=== PATIENT | female | born 1965 | race Caucasian/White ===

== ENCOUNTER 2016-08-02 13:46 | Emergency (ER) | payer OTHER ==
[2016-08-02] MEDS ORDERED: HYDROmorphone HCL 1 MG/ML SYR ONE (15:28)
--- NOTE | 2016-08-02 17:05 | ER PHYSICIAN DOCUMENTATION ---
Physician Documentation [facility] Name:Isabella Cantor Age:51 yrs Sex:Female :1965 Arrival Date:08/02/2016 Time:13:46 Bed6 Private MD: Sukhdeep Sloan Disposition: 08/02/16 15:23 Discharged to Home/Self Care. Impression: Fracture. - Condition is Good. - Discharge Instructions: FRACTURE, Upper Extremity. - Prescriptions for oxycodone- acetaminophen 5-325 mg Oral tablet - take 1 tablet by ORAL route every 4-6 hours; 30 tablet. - Medical Reconciliation form form. - Follow up: Private Physician; When: 4- 6 days; Reason: Continuance of care. - Problem is new. - Symptoms are unchanged. HPI: 08/02 15:17 This 51 yrs old Female presents to ER via Private Vehicle with complaints of sc Fall Injury, Arm Injury. 15:17 Details of fall: The patient fell from an upright position, while walking. Onset: The sc symptom(s)/episode began/occurred 2 hour(s) ago. Associated injuries: The patient sustained left elbow. Associated signs and symptoms: The patient has no apparent associated signs or symptoms, Loss of consciousness: the patient experienced no loss of consciousness. Severity of symptoms: At their worst the symptoms were moderate. Historical: - Allergies: SULFA (SULFONAMIDES); - Home Meds: 1. losartan oral 2. Zocor Oral - PMHx: Hypertension; hypercholesterol; - PSHx: csection x2; breast augmentation; Tonsillectomy; tubal ligation; - Tetanus: < 10 years < 10 years. - Ebola Screening: : Patient negative for fever greater than or equal to 101.5 degrees Fahrenheit, and additional compatible Ebola Virus Disease symptoms. Patient denies exposure to infectious person. Patient denies travel to an Ebola-affected area in the 21 days before illness onset. No symptoms or risks identified at this time. . - Immunization history: Pneumococcal vaccine is not up to date, Patient has never been vaccinated Flu Vaccine < 1 year. - Social history: Smoking status: Patient states was never smoker of tobacco. Patient/guardian denies using alcohol, marijuana. ROS: 15:18 Constitutional: Negative for fever, chills, and weight loss. sc Eyes: Negative for injury, pain, redness, and discharge. ENT: Negative for injury, pain, and discharge. Neck: Negative for injury, pain, and swelling. Cardiovascular: Negative for chest pain, palpitations, and edema. Respiratory: Negative for shortness of breath, cough, wheezing, and pleuritic chest pain. Abdomen/GI: Negative for abdominal pain, nausea, vomiting, diarrhea, and constipation. Back: Negative for injury and pain. Skin: Negative for injury, rash, and discoloration. 15:18 Neuro: Negative for headache, weakness, numbness, tingling, and seizure. sc 15:18 MS/extremity: Positive for injury or acute deformity, pain. Exam: Constitutional: This is a well developed, well nourished patient who is awake, alert, and in no acute distress. Head/Face: Normocephalic, atraumatic. Eyes: Pupils equal round and reactive to light, extra-ocular motions intact. Lids and lashes normal. Conjunctiva and sclera are non-icteric and not injected. Cornea within normal limits. Periorbital areas with no swelling, redness, or edema. Neck: Trachea midline, no thyromegaly or masses palpated, and no cervical lymphadenopathy. Supple, full range of motion without nuchal rigidity, or vertebral point tenderness. No meningismus. Back: No spinal tenderness. No costovertebral tenderness. Full range of motion. Skin: Warm, dry with normal turgor. Normal color with no rashes, no lesions, and no evidence of cellulitis. 15:18 Neuro: Awake and alert, GCS 15, oriented to person, place, time, and situation. ar Cranial nerves II-XII grossly intact. Motor strength 5/5 in all extremities. Sensory grossly intact. Cerebellar exam normal. Normal gait. 15:18 Musculoskeletal/extremity: Extremities: grossly normal except: decreased ROM, pain, swelling, tenderness, Circulation is intact in all extremities. Sensation intact. 15:18 Neuro: Cranial nerves: Motor: is normal. Vital Signs: 14:03 BP 151 / 88; Pulse 81; Resp 16; Temp 97.7(O); Pulse Ox 94% on R/A; Weight 90.72 kg; sj Height 5 ft. 6 in. (167.64 cm); Pain 5/10; 15:24 BP 135 / 71 (auto/); Pulse 83; Pulse Ox 94% on R/A; Pain 8/10; sj 15:48 BP 96 / 38 (auto/); Pulse 92; Pulse Ox 86% on R/A; sj 16:21 BP 121 / 61 (auto/); Pulse 86; Resp 16; Pulse Ox 96% ; Pain 0/10; sj 14:03 Body Mass Index 32.28 (90.72 kg, 167.64 cm) Trauma Score (Adult): 14:03 Eye Response: spontaneous(1); Verbal Response: oriented(1); Motor Response: obeys commands(2); Systolic BP: > 89 mm Hg(4); Respiratory Rate: 10 to 29 per min(4); Yun Score: 15; Trauma Score: 12 Procedures: 15:19 Splinting: Splint applied to left elbow using Orthoglass splint, applied by myself. sc Examined by me, post splint application: neurovascular intact, Patient tolerated well. MDM: 13:54 Patient medically screened. ar 15:19 Physician consultation: Osorio Underwood MD was called at 15:19, was contacted at 15:20, ar regarding patient's condition, Dr. Underwood says patient needs surgical repair but he does not want to or is not able to provide this service. Arrangements made for ortho follow up on return home.. 16:55 Data reviewed: and as a result, I will discharge patient. Counseling: I had a detailed ar discussion with the patient and/or guardian regarding: the historical points, exam findings, and any diagnostic results supporting the discharge/admit diagnosis, radiology results, the need for outpatient follow up, for a referral to a specialist. 08/02 14:26 Order name: ELBOW;[place] [id number]; Complete Time: 15:24 EDUT 08/02 14:26 Order name: [place] [id number]; Complete Time: 15:24 EDUT 08/02 21:06 Order name: ELBOW;COMPLETE [place] [id number] EDUT 08/02 15:25 Order name: ORTHO: Ice Pack; Complete Time: 16:06 ar 08/02 15:25 Order name: ORTHO: Shoulder Immobilizer; Complete Time: 16:06 ar 08/02 15:25 Order name: ORTHO: Splint; Complete Time: 16:06 ar 08/02 16:06 Order name: Oxygen; Complete Time: 16:06 Dispensed Medications: 15:45 Drug: Dilaudid 2 mg; Route: IM; Site: left gluteus; sj 16:47 Follow up: Response: Pain is decreased sj Signatures: Sukhdeep Salter MD MD sc Janzen, Sarah sj
--- NOTE | 2016-08-02 17:05 | ER NURSING DOCUMENTATION ---
Nurse's Notes [facility] Name:Isabella Cantor Age:51 yrs Sex:Female :1965 Arrival Date:08/02/2016 Time:13:46 Bed6 Private MD: Diagnosis:Fracture Presentation: 08/02 13:56 Presenting complaint: Patient states: Fell today while hiking, landing on left elbow sj and heard something "snap.". Care prior to arrival: sling. Mechanism of Injury: Fall. Trauma event details: Injury occurred in the [facility] Injury occurred in a recreational area. Injury occurred August 02, 2016 Injury occurred at 12:00. 13:56 Acuity: MANPREET 3 sj 13:56 Method Of Arrival: Private Vehicle sj 17:03 Transition of care: Other hiking in [facility]. sj Triage Assessment: 17:00 General: Appears distressed, Behavior is cooperative, pleasant. Pain: Complains of pain sj in distal left humerus. Neuro: Denies paresthesias in left hand numbness. Cardiovascular: Capillary refill < 3 seconds. Cardiovascular: Capillary refill in left fingers. Respiratory: Respiratory effort is even, unlabored. Musculoskeletal: Swelling present in left elbow. Historical: - Allergies: SULFA (SULFONAMIDES); - Home Meds: 1. losartan oral 2. Zocor Oral - PMHx: Hypertension; hypercholesterol; - PSHx: csection x2; breast augmentation; Tonsillectomy; tubal ligation; - Tetanus: < 10 years < 10 years. - Ebola Screening: : Patient negative for fever greater than or equal to 101.5 degrees Fahrenheit, and additional compatible Ebola Virus Disease symptoms. Patient denies exposure to infectious person. Patient denies travel to an Ebola-affected area in the 21 days before illness onset. No symptoms or risks identified at this time. . - Immunization history: Pneumococcal vaccine is not up to date, Patient has never been vaccinated Flu Vaccine < 1 year. - Social history: Smoking status: Patient states was never smoker of tobacco. Patient/guardian denies using alcohol, marijuana. Screenin:04 Abuse screen: Denies threats or abuse. Denies injuries from another. Nutritional sj screening: No deficits noted. Tuberculosis screening: No symptoms or risk factors identified. Primary Survey: 17:02 Circulation: Pulses: palpable left radial artery. Skin color: pink. sj Assessment: 13:58 General: Appears uncomfortable, Behavior is cooperative, pleasant. Pain: Complains of sj pain in distal left humerus Pain currently is 5 out of 10 on a pain scale. Neuro: Level of Consciousness is awake, alert, Oriented to person, place, time, event, Denies paresthesias. Cardiovascular: Capillary refill < 3 seconds is brisk Pulses are 2+ in left radial artery. Respiratory: Respiratory effort is even, unlabored. Musculoskeletal: Circulation, motion, and sensation intact Capillary refill < 3 seconds Range of motion limited in left elbow Swelling absent. 15:51 Reassessment: Assisted Dr. Salter with posterior splint. Patient became diaphoretic and sj nauseated after procedure. BP now 96/38 with pulse ox 86%. HOB lowered and 2L O2/nc placed.. Vital Signs: 14:03 BP 151 / 88; Pulse 81; Resp 16; Temp 97.7(O); Pulse Ox 94% on R/A; Weight 90.72 kg; sj Height 5 ft. 6 in. (167.64 cm); Pain 5/10; 15:24 BP 135 / 71 (auto/); Pulse 83; Pulse Ox 94% on R/A; Pain 8/10; sj 15:48 BP 96 / 38 (auto/); Pulse 92; Pulse Ox 86% on R/A; sj 16:21 BP 121 / 61 (auto/); Pulse 86; Resp 16; Pulse Ox 96% ; Pain 0/10; sj 14:03 Body Mass Index 32.28 (90.72 kg, 167.64 cm) sj Trauma Score (Adult): 14:03 Eye Response: spontaneous(1); Verbal Response: oriented(1); Motor Response: obeys commands(2); Systolic BP: > 89 mm Hg(4); Respiratory Rate: 10 to 29 per min(4); [place] Score: 15; Trauma Score: 12 ED Course: 13:47 Patient arrived in ED. cj 13:54 Sukhdeep Salter MD is Attending Physician. sc 13:56 Shy Wagner is Primary Nurse. sj 13:58 Triage completed. sj 14:04 Valuables Given to family. Patient has correct armband on for positive identification. sj Bed in low position. Call light in reach. Side rails up X 1. 14:10 Port Xray Completed. ms 14:26 ELBOW;[place] [id number] In Process Unspecified. EDMS 14:26 [place] [id number] In Process Unspecified. EDMS Administered Medications: 15:45 Drug: Dilaudid 2 mg; Route: IM; Site: left gluteus; sj 16:47 Follow up: Response: Pain is decreased sj Outcome: 15:23 Discharge ordered by . nm 16:57 Discharged to home ambulatory, with family. 16:57 Condition: improved 16:57 Discharge instructions given to patient, Instructed on discharge instructions, follow up and referral plans. medication usage, Ortho Care Demonstrated understanding of instructions, medications, Prescriptions given X 1. 17:04 Patient left the ED. 08/03 09:17 Discharge F/U Call: Spoke with: patient. Are you having any pain? yes. Pain level is lp 4 / 10 How are you managing your pain? Patient is taking medication: percocet and ibuprofen Have you filled your prescriptions? yes. Signatures: Dispatcher [employer] EDMS Daniella Tsang RN RN cb Pavlish, Lena, RN RN lp Chew, Scott, MD MD sc Strickland, Mary ms Jones, Shy Howard
--- NOTE | 2016-08-02 17:38 | RADIOLOGY REPORT ---
Three views of the left elbow demonstrate fracture dislocation of the capitellum. Fracture fragment measures approximately 2 cm x 2 cm. It is dislocated anteriorly 2 cm. The radius and ulna appear intact. IMPRESSION: Fracture dislocation of the left capitellum. The findings were personally reviewed with Dr. Salter at 1445 hours. [facility]
== END 2016-08-02 17:04 | disposition home or self-care (01) ==
LOC: ER 13:46
DX: S42.452A Displaced fracture of lateral condyle of left humerus, initial encounter for closed fracture (principal); W19.XXXA Unspecified fall, initial encounter; Y92.838 Other recreation area as the place of occurrence of the external cause; Y93.01 Activity, walking, marching and hiking; I10 Essential (primary) hypertension; Z79.899 Other long term (current) drug therapy
CPT/HCPCS: 29105; 96372; 99283; J1170